=== PATIENT | male | born 1980 | race Caucasian/White ===

== ENCOUNTER 2016-09-20 18:16 | Emergency (ER) | payer BC ==
--- NOTE | 2016-09-20 18:04 | EDPHY ---
H & P Time Seen by Provider: 09/20/16 18:18 HPI/ROS: CHIEF COMPLAINT: [ ] HISTORY OF PRESENT ILLNESS: [must have 4 elements] REVIEW OF SYSTEMS: Eye:[ no change in vision] ENT: [no sore throat] Cardiac: [no chest pain or syncope] Pulmonary: [no cough or SOB] Abdomen: [no vomiting, diarrhea, abdominal pain] Musculoskeletal: [no back pain] Skin: [no rash] Neuro: [no headache] Constitutional: [no fever] : [no urinary symptoms] A comprehensive 10 point review of systems is otherwise negative aside from elements mentioned in the history of present illness. PAST MEDICAL HISTORY: Social history: General Appearance: [Alert and conversant, cooperative.] Eyes: [No scleral icterus.] ENT, Mouth: [Normal mucous membranes.] Respiratory: [Normal respiratory effort, breath sounds equal, lungs are clear to auscultation.] Cardiovascular: [Regular rate and rhythm.] Gastrointestinal: [Abdomen is soft and non tender.] Neurological: [Alert and oriented x3.] [Normally conversant.] [Face symmetric , normal movement and sensation in all extremities.] Skin: [Warm and dry, no rashes.] Musculoskeletal: [No peripheral edema and no joint swelling.] Psychiatric: [Not agitated.] Emergency Department course/MDM:
--- NOTE | 2016-09-20 18:24 | EDPHY ---
H & P Time Seen by Provider: 09/20/16 18:18 HPI/ROS: Chief complaint. Fall skiing HPI. Patient is a 36-year-old male here by EMS from [facility]. He was apparently [place] by himself and skied to the bottom of the hill and was noted to be confused by his friends. They took him to the aid station and he had repetitive questioning. Patient does not recall falling or hitting anything. He continues to have repetitive questioning though this seems to be slowing down somewhat. Patient complains of pain to his head, mid low back, right dempsey. He was wearing a helmet. ROS Constitutional. no fever/chills, no weakness Eyes. no problems with vision ENT. no sore throat, no nasal drainage Cardiovascular. no chest pain Respiratory. no shortness of breath, no cough Abdominal. no abdominal pain, no nausea/vomiting, no diarrhea . no problems urinating MS. Neck pain and mid back pain. Pain to the right dempsey area Skin. no rash Lymph. no swollen glands Neuro. Headache Past Medical/Surgical History: Hypertension Social History: , nonsmoker, no alcohol Physical Exam: General Appearance: Alert pleasant well-developed male mild distress some repetitive questioning. Vital signs are stable Eyes: Pupils equal and round no pallor or injection. ENT, no hemotympanum or [place] sign. No oral pharyngeal or dental trauma. No bumps or trauma to the head Respiratory: There are no retractions, lungs are clear to auscultation. Cardiovascular: Regular rate and rhythm. Gastrointestinal: Abdomen is soft and nontender, no masses, bowel sounds normal. Neurological: Awake and alert, sensory and motor exams grossly normal. Some repetitive questioning. Skin: Warm and dry, no rashes. Musculoskeletal: Neck is possibly tender mid cervical spine. Extremities symmetrical, full range of motion. Psychiatric: Patient is oriented X 1, there is no agitation. Constitutional: Initial Vital Signs Temperature (C) 36.8 C 09/20/16 18:32 Heart Rate 106 H 09/20/16 18:32 Respiratory Rate 20 09/20/16 18:32 Blood Pressure 146/101 H 09/20/16 18:32 O2 Sat (%) 93 09/20/16 18:32 O2 Delivery Mode Room Air Allergies/Adverse Reactions: soy Allergy (Verified 09/20/16 18:31) Home Medications: Medication Instructions Recorded NK [No Known Home Meds] 09/20/16 Medical Decision Making - Diagnostics Imaging: CT head and cervical spine reviewed by me and interpreted by Dr. Chen as negative for trauma T-spine CT reviewed by me and then discussed with Dr. Chen shows degeneration of the lower thoracic spine but no evidence for acute fracture ED Course/Re-evaluation: Re-evaluation at 7:15 p.m. patient no longer has repetitive questioning. He is now oriented and improving. He is drinking water and eating crackers. Serial evaluations and last recheck was at 8:20 p.m.. Patient is conversational and oriented. He is eating a meal without nausea vomiting. The patient and his friends and I discussed imaging study results, treatment plan including criteria for return and importance of follow-up and further evaluation. He expresses understanding and agreement Differential Diagnosis: I considered intracranial injury, skull fracture, concussion, spine fracture, tib-fib fracture - Data Points Laboratory Results: Laboratory Results 09/20/16 19:37 09/20/16 19:37 09/20/16 09/20/16 09/20/16 19:37 19:37 19:37 WBC 15.40 10^3/uL H 10^3/uL (3.80-9.50) RBC 4.79 10^6/uL 10^6/uL (4.40-6.38) Hgb 14.0 g/dL g/dL (13.7-17.5) Hct 39.7 % L % (40.0-51.0) MCV 82.9 fL fL (81.5-99.8) MCH 29.2 pg pg (27.9-34.1) MCHC 35.3 g/dL g/dL (32.4-36.7) RDW 12.1 % % (11.5-15.2) Plt Count 207 10^3/uL 10^3/uL (150-400) MPV 9.5 fL fL (8.7-11.7) Neut % (Auto) 83.4 % H % (39.3-74.2) Lymph % (Auto) 9.5 % L % (15.0-45.0) [place] % (Auto) 6.3 % % (4.5-13.0) Eos % (Auto) 0.1 % L % (0.6-7.6) Baso % (Auto) 0.2 % L % (0.3-1.7) Nucleat RBC Rel Count 0.0 % % (0.0-0.2) Absolute Neuts (auto) 12.84 10^3/uL H 10^3/uL (1.70-6.50) Absolute Lymphs (auto) 1.47 10^3/uL 10^3/uL (1.00-3.00) Absolute Monos (auto) 0.97 10^3/uL H 10^3/uL (0.30-0.80) Absolute Eos (auto) 0.02 10^3/uL L 10^3/uL (0.03-0.40) Absolute Basos (auto) 0.03 10^3/uL 10^3/uL (0.02-0.10) Absolute Nucleated RBC 0.00 10^3/uL 10^3/uL (0-0.01) Immature Gran % 0.5 % % (0.0-1.1) Immature Gran # 0.07 10^3/uL 10^3/uL (0.00-0.10) PT 13.5 SEC SEC (12.0-15.0) INR 1.04 (0.83-1.16) APTT 23.2 SEC SEC (23.0-38.0) Sodium 132 mEq/L L mEq/L (134-144) Potassium 4.2 mEq/L mEq/L (3.5-5.2) Chloride 96 mEq/L L mEq/L (97-110) Carbon Dioxide 26 mEq/l mEq/l (22-31) Anion Gap 10 mEq/L mEq/L (8-16) BUN 14 mg/dL mg/dL (7-23) Creatinine 0.9 mg/dL mg/dL (0.7-1.3) Estimated GFR > 60 Glucose 109 mg/dL H mg/dL (70-100) Calcium 9.4 mg/dL mg/dL (8.5-10.4) Departure - Departure Disposition: Home, Routine, Self-Care Clinical Impression: Brain concussion Condition: Good Instructions: Concussion (ED) Additional Instructions: tylenol/advil for discomfort. easy activity next 3-4 days. No activity that may result in head injury for 1 week. Return tonight for worsening headache, confusion, vomiting. Recheck with your regular physician upon return home to [place] tomorrow Referrals: Patient,NotPresent [Unknown] - As per Instructions
[2016-09-20 18:34] VITALS: TEMP 98.2
[2016-09-20 19:43] LABS: % IMMATURE GRANULYOCYTES 0.5 % (0.0-1.1); ABSOLUTE IMMATURE GRANULOCYTES 0.07 10^3/uL (0.00-0.10); ADD DIFF? NO; ADD MORPH? NO; ADD SCAN? NO; ATYPICAL LYMPHOCYTE FLAG 0 (0-99); FRAGMENT RBC FLAG 0 (0-99); HEMATOCRIT 39.7 % (40.0-51.0); LEFT SHIFT FLG 0 (0-99); LIPEMIA HEMOLYSIS FLAG 90 (0-99); MEAN CELL HEMOGLOBIN 29.2 pg (27.9-34.1); MEAN CELL HEMOGLOBIN CONCENTR. 35.3 g/dL (32.4-36.7); MEAN CELL VOLUME 82.9 fL (81.5-99.8); MEAN PLATELET VOLUME 9.5 fL (8.7-11.7); PLATELET CLUMPS FLAG 0 (0-99); PLATELET COUNT 207 10^3/uL (150-400); RED BLOOD CELL COUNT 4.79 10^6/uL (4.40-6.38); RED CELL DISTRIBUTION WIDTH 12.1 % (11.5-15.2)
[2016-09-20 19:56] LABS: INR 1.04 (0.83-1.16); PROTIME(PATIENT) 13.5 SEC (12.0-15.0)
[2016-09-20 19:57] LABS: APTT 23.2 SEC (23.0-38.0)
[2016-09-20 20:19] LABS: ANION GAP 10 mEq/L (8-16); CALCIUM 9.4 mg/dL (8.5-10.4); CARBON DIOXIDE 26 mEq/l (22-31); CHLORIDE 96 mEq/L (97-110); CREATININE 0.9 mg/dL (0.7-1.3); GLOMERULAR FILTRATION RATE > 60; GLUCOSE 109 mg/dL (70-100); POTASSIUM 4.2 mEq/L (3.5-5.2); SODIUM 132 mEq/L (134-144)
[2016-09-20 21:02] VITALS: BP 149/89; PULSE 95; RESP 20; O2SAT 94
== END 2016-09-20 21:02 | disposition home or self-care (01) ==
LOC: EDBD 18:16
DX: S06.0X0A Concussion without loss of consciousness, initial encounter (principal); I10 Essential (primary) hypertension; V00.321A Fall from snow-skis, initial encounter; Y92.89 Other specified places as the place of occurrence of the external cause; Y93.23 Activity, snow (alpine) (downhill) skiing, snowboarding, sledding, tobogganing and snow tubing